=== PATIENT | female | born 1970 | race Caucasian/White ===

== ENCOUNTER 2019-02-08 09:28 | Emergency (ER) | payer BC ==
--- OUTSIDE RECORDS SUMMARY | 2019-02-08 09:55 | XMS REPORT | Continuity of Care Document ---
:1970 External Reference #:[id number] Author Name Elza Ortiz N.P. (transmitted by agent of provider Chela Villasenor) Address [facility] [facility], [address] [place] [id number] Care Team Providers Name Role Phone Isabel Robles PA - Physician Care Team Information Sidehand [phone] Automatic Clipper Problems Description No Information Available Social History Type Date Description Comments Sex Unknown Cigarette Use Quit 5 Years Ago ETOH Use Rarely consumes alcohol Exercise Type/Frequency Exercises regularly Allergies, Adverse Reactions, Alerts Description No Known Drug Allergies Medications Active Medications SIG Qnty Indications Ordering Provider Date Progesterone Take one tab 30caps Elza Ortiz N.P. 12/19/2018 Micronized daily, Day 100mg Capsules 14-28 Multivitamin Adult 1 by mouth Unknown every day Tablets Calcium 1200 1 by mouth Unknown every day [id number] Chewtabs Valerian Root Unknown Immunizations Description No Information Available Vital Signs Date Vital Result Comment 12/19/2018 8:16am Height 64 inches 5'4" Weight 178.00 lb Heart Rate 78 /min BP Systolic 126 mmHg BP Diastolic 86 mmHg O2 % BldC Oximetry 98 % BMI (Body Mass Index) 30.6 kg/m2 Last Menstrual Period [id number] Results Description No Information Available Procedures Description No Information Available Medical Devices Description No Information Available Encounters Description No Information Available Assessments Date Code Description Provider 12/19/2018 N93.9 Abnormal uterine and vaginal bleeding, Elza Ortiz N.P. unspecified 12/19/2018 Z01.419 Encounter for gynecological examination (general) Elza Ortiz N.P. (routine) without abnormal findings Plan of Treatment 12/19/2018 - Elza Ortiz N.P.N93.9 Abnormal uterine and vaginal bleeding, unspecifiedComments:Try ibuprofen 200mg po three times a day every day you are bleeding.Try progesterone 100mg po at night, day 14-day 28Will schedule hormonal IUD, will discuss use of misoprostol with Zita Andrews.Plan to obtain TVUS, plan to check labs as per below.Z01.419 Encounter for gynecological examination (general) (routine) without abnormal findingsComments:Pap due next yearMammogram up to date Functional Status Description No Information Available Mental Status Description No Information Available Referrals Description No Information Available
[2019-02-08 10:07] VITALS: BP 121/84
--- NOTE | 2019-02-08 10:20 | UC ---
Throat Pain/Nasal Oscar HPI - HPI Summary HPI Summary: 48-year-old woman comes in with chief complaint of upper respiratory tract infection symptoms for one month. Patient's been having rhinorrhea and postnasal drip. She was treated with 5 days of steroids earlier in the illness but overall she has not gotten better. She has been using decongestants and now she feels sinus pressure and is not able to get much rhinorrhea out. - History of Current Complaint Chief Complaint: UCGeneralIllness Stated Complaint: HEAD CONGESTION Time Seen by Provider: 02/08/19 09:55 Hx Last Menstrual Period: 01/06/19 Pain Intensity: 4 - Allergies/Home Medications Allergies/Adverse Reactions: Allergies Allergy/AdvReac Type Severity Reaction Status Date / Time No Known Allergies Allergy Verified 02/08/19 09:57 Home Medications: Home Medications Iron 18 mg PO EVERY OTHER DAY 02/08/19 [History Confirmed 02/08/19] Phenylephrine HCl [Sudafed PE] 10 mg PO ONCE 02/08/19 [History Confirmed ] Progesterone, Micronized [Progesterone] 100 mg PO DAILY 02/08/19 [History Confirmed 02/08/19] guaiFENesin [Mucinex] 600 mg PO ONCE 02/08/19 [History Confirmed 02/08/19] PMH/Surg Hx/FS Hx/Imm Hx Previously Healthy: Yes - Surgical History Surgical History: Yes Surgery Procedure, Year, and Place: 1997 SPLEENECTOMY [place]. 2009 L / [place]OT [place] [facility] [place]-FOOT SURGERY. WISDOM TEETH REMOVED - Family History Known Family History: Positive: None - Social History Alcohol Use: Daily Alcohol Amount: 1 glass wine/ day Substance Use Type: None Smoking Status (MU): Never Smoked Tobacco Length of Time of Smoking/Using Tobacco: 14 years When Did the Patient Quit Smoking/Using Tobacco: 2014 Review of Systems All Other Systems Reviewed And Are Negative: Yes Constitutional: Positive: Other - see hpi Skin: Positive: Negative Eyes: Positive: Negative ENT: Positive: Sore Throat, Nasal Discharge, Sinus Congestion, Sinus Pain/ Tenderness Respiratory: Positive: Negative Cardiovascular: Positive: Negative Gastrointestinal: Positive: Negative Motor: Positive: Negative Neurovascular: Positive: Negative Musculoskeletal: Positive: Negative Neurological: Positive: Negative Psychological: Positive: Negative Is Patient Immunocompromised?: No Physical Exam Triage Information Reviewed: Yes Appearance: No Pain Distress, Well-Nourished, Ill-Appearing - mild Vital Signs: Initial Vital Signs Temp 99 F 02/08/19 10:00 Pulse 75 02/08/19 10:00 Resp 18 02/08/19 10:00 BP 121/84 02/08/19 10:00 Pulse Ox 97 02/08/19 10:00 Vital Signs Reviewed: Yes Eye Exam: Normal Eyes: Positive: Conjunctiva Clear ENT: Positive: Pharyngeal erythema, Nasal congestion, Nasal drainage, TMs normal , Sinus tenderness Neck: Positive: Supple Respiratory: Positive: Lungs clear, Normal breath sounds, No respiratory distress Cardiovascular: Positive: RRR Musculoskeletal: Positive: Strength Intact, ROM Intact Neurological: Positive: Alert, Muscle Tone Normal Psychological: Positive: Age Appropriate Behavior Skin Exam: Normal Throat Pain/Nasal Course/Dx - Differential Dx/Diagnosis Provider Diagnosis: Sinusitis Discharge ED - Sign-Out/Discharge Documenting (check all that apply): Patient Departure All imaging exams completed and their final reports reviewed: No Studies - Discharge Plan Condition: Stable Disposition: HOME Prescriptions: Amoxicillin/Clavulanate TAB* [Augmentin TAB 875*] 875 mg PO BID #20 tab Fluticasone NASAL SPRAY 50MCG* [Flonase NASAL SPRAY 50MCG*] 2 spray BOTH NARES DAILY #1 btl Patient Education Materials: Sinusitis (ED) Referrals: Radha Ogden MD [Primary Care Provider] - Additional Instructions: FOLLOW UP WITH YOUR DOCTOR IF NOT COMPLETELY IMPROVED. GET REEVALUATED SOONER IF NOT IMPROVED OR WORSE OR ANY QUESTIONS OR CONCERNS. - Billing Disposition and Condition Condition: STABLE Disposition: Home
== END 2019-02-08 10:29 | disposition home or self-care (01) ==
LOC: UCEAST 09:28
DX: J32.9 Chronic sinusitis, unspecified (principal)
CPT/HCPCS: 99212; G0463

== ENCOUNTER 2022-08-21 18:13 | Observation (INO) ==
[2022-08-21] MEDS ORDERED: Iodixanol (CONTRAST) 320 MG/ML 100 ML SDV IV ONE (18:39)
[2022-08-21 18:53] LABS: ABS Basophils 0.1 10^3/uL (0.0-0.1); ABS Eosinophils 0.1 10^3/uL (0.0-0.5); ABS Lymphocytes 3.8 10^3/uL (1.0-4.8); ABS Monocytes 1.2 10^3/uL (0.0-0.9); ABS Neutrophils 6.9 10^3/uL (1.5-7.6); Eosinophil % 0.6 %; Hematocrit 43.4 % (35-45); Hemoglobin 14.5 g/dL (11.5-14.3); Lymphocyte % 31.1 %; Mean Corpuscular Hemoglobin 31.6 pg (27-33); Mean Corpuscular Hgb Conc 33.4 g/dL (31-36); Mean Corpuscular Volume 94.7 fL (80-97); Mean Platelet Volume 7.4 fL (7.5-11.2); Platelet Count 446 10^3/uL (150-450); Red Blood Count 4.58 10^6/uL (3.63-4.92); Red Cell Distribution Width 13.9 % (12-17); White Blood Count 12.1 10^3/uL (3.8-11.8)
[2022-08-21 19:06] LABS: Activated Partial Thrombo Time 36.8 seconds (26.0-38.0); INR 1.08 (0.88-1.18)
[2022-08-21 19:30] LABS: Albumin 4.9 g/dL (3.2-5.2); Albumin/Globulin Ratio 1.5 (1-3); Calcium 10.4 mg/dL (8.6-10.3); Creatinine, Serum 1.21 mg/dL (0.51-0.95); Globulin 3.3 g/dL (2-4); HDL Cholesterol 64.9 mg/dL; Potassium 3.8 mmol/L (3.5-5.0); Total Bilirubin 0.5 mg/dL (0.2-1.0); Total Protein 8.2 g/dL (6.4-8.9); eGFR CKD-EPI 54.9 (>60)
[2022-08-21 19:35] LABS: Urine Appearance Clear; Urine Bilirubin Negative (Negative); Urine Blood 1+ (Negative); Urine Color Colorless; Urine Glucose Negative (Negative); Urine Ketones Negative (Negative); Urine Nitrite Negative (Negative); Urine Protein Negative (Negative); Urine Specific Gravity 1.014 (1.002-1.030); Urine Urobilinogen Negative (Negative)
[2022-08-21 19:50] LABS: Urine Bacteria Absent (Absent); Urine Red Blood Cell Trace(0-2/hpf) (Absent); Urine Squamous Epithelial Cell Present (Absent); Urine White Blood Cell Trace(0-5/hpf) (Absent)
[2022-08-21] MEDS ORDERED: Albuterol HFA INHALER 8 gm MDI INH PRN (23:28)
[2022-08-22 06:22] LABS: Calcium 9.3 mg/dL (8.6-10.3); Creatinine, Serum 0.78 mg/dL (0.51-0.95); Magnesium 2.4 mg/dL (1.9-2.7); eGFR CKD-EPI 93.1 (>60)
[2022-08-22 13:55] VITALS: BP 137/94
[2022-08-22] MEDS ORDERED: Mometasone 220 MCG MDI INH SCH (19:00)
== END 2022-08-22 13:55 | disposition home or self-care (01) ==
LOC: ED 18:13 → EDHOLD 18:13 → SUATTDRO 22:20 → EDHOLD 08-22 13:54
PROVIDERS: ADMIT Internal Medicine; ATTEND Internal Medicine